=== PATIENT | male | born 2000 | race African-American/Black ===

== ENCOUNTER 2024-01-04 10:58 | Emergency (ER) | payer OTHER, SELFPAY ==
[2024-01-04] MEDS ORDERED: Lidocaine 1% PF 5 ML VIAL ONE (11:53)
== END 2024-01-04 12:00 ==
LOC: ERS 10:58 → EEVIPCON 10:58 → ERS 12:00
DX: S61.411A Laceration without foreign body of right hand, initial encounter (principal); Z87.891 Personal history of nicotine dependence; W22.8XXA Striking against or struck by other objects, initial encounter